=== PATIENT | male | born 1940 | race Caucasian/White ===

== ENCOUNTER 2024-02-15 18:02 | Emergency (ER) | payer OTHER, SELFPAY ==
--- NOTE | ~2024-02-15 | CT_ITS ---
EXAMINATION: CT CHEST WITHOUT CONTRAST CLINICAL INFORMATION: Altered mental status COMPARISON: None available. TECHNIQUE: Multidetector volumetric CT imaging of the chest was done. Axial MIP volume rendering provided. Sagittal and coronal reformatted images were obtained. This CT examination was performed using dose optimization techniques as appropriate, variously including the following: *Automated exposure control *Adjustment of mA and/or kV according to patient size (this includes techniques or standardized protocols for targeted exams where dose is matched to indication/reason for exam; i.e. extremities or head) *Use of iterative reconstruction technique DLP: 118 mGy-cm FINDINGS: LUNGS: The lungs are clear with no evidence of inflammation or nodules. MEDIASTINUM: The mediastinum is normal. CORONARY ARTERY CALCIFICATION: Moderate PLEURA: There is no pleural effusion. No pleural mass or thickening. AXILLA: No lymphadenopathy. UPPER ABDOMEN: Benign cysts are present in the liver. OSSEOUS STRUCTURES: There is a comminuted intra-articular fracture involving the humeral neck and portion of the humeral head on the left with marked displacement of the distal fracture fragments medially. There is a large surrounding hematoma and hemarthrosis. No scapular fracture is seen. No rib fractures are seen. Severe degenerative changes are present in the right glenohumeral joint. There is a compression fracture involving superior endplate of T12, age indeterminate. CT/CT chest wo IV con IMPRESSION: 1. Comminuted intra-articular fracture involving the left humeral neck and portion of the humeral head with marked displacement of the distal fracture fragments medially. 2. Age-indeterminate compression fracture superior endplate of T12. 3. No other significant abnormality is seen. Fleischner guidelines were followed.
--- NOTE | ~2024-02-15 | CT_ITS ---
EXAMINATION: CT HEAD WITHOUT CONTRAST CLINICAL INFORMATION: Fall. Mental status change. COMPARISON: None available. TECHNIQUE: Contiguous axial imaging was performed from the skull base to vertex without intravenous administration of contrast. This CT examination was performed using dose optimization techniques as appropriate, variously including the following: *Automated exposure control *Adjustment of mA and/or kV according to patient size (this includes techniques or standardized protocols for targeted exams where dose is matched to indication/reason for exam; i.e. extremities or head) *Use of iterative reconstruction technique DLP: 716 mGy-cm FINDINGS: There is no evidence of an extra-axial collection. There is no evidence of intra or extra-axial hemorrhage. The ventricles and extra-axial CSF spaces are prominent suggestive of mild generalized atrophy. There is nonspecific periventricular white matter disease. No mass, mass effect or infarct. No skull fracture. There is soft tissue swelling over the right frontal bone. There is soft tissue opacification of the right mastoid air cells. Left mastoid air cells, middle ears and visualized paranasal sinuses are clear. CT/CT head/brain wo IV con IMPRESSION: Generalized atrophy and nonspecific periventricular white matter disease. Soft tissue swelling over the right frontal bone. Right mastoid effusion.
--- NOTE | ~2024-02-15 | CT_ITS ---
EXAMINATION: CT CERVICAL SPINE WITHOUT CONTRAST CLINICAL INFORMATION: Fall COMPARISON: None available. TECHNIQUE: Axial images through the cervical spine without contrast. Sagittal and coronal reconstructions. This CT examination was performed using dose optimization techniques as appropriate, variously including the following: *Automated exposure control *Adjustment of mA and/or kV according to patient size (this includes techniques or standardized protocols for targeted exams where dose is matched to indication/reason for exam; i.e. extremities or head) *Use of iterative reconstruction technique DLP: 600 mGy-cm FINDINGS: Bone alignment is normal. No fracture or dislocation. Degenerative spondylosis and disc space narrowing at C5-C6 and C6-C7. Bilateral facet arthritis. Degenerative changes at the C1 dens articulation. Prevertebral soft tissues are normal. CT/CT cervical spine wo IV con IMPRESSION: Degenerative changes. No fracture or dislocation. Fleischner guidelines were followed.
--- NOTE | ~2024-02-15 | CT_ITS ---
EXAMINATION: Left humerus and forearm CT CLINICAL INFORMATION: Fall. Extensive swelling. Fracture. COMPARISON: None. TECHNIQUE: Axial images through the left humerus and left forearm without contrast. Sagittal and coronal reconstructions. This CT examination was performed using dose optimization techniques as appropriate, variously including the following: *Automated exposure control *Adjustment of mA and/or kV according to patient size (this includes techniques or standardized protocols for targeted exams where dose is matched to indication/reason for exam; i.e. extremities or head) *Use of iterative reconstruction technique DLP 2 9 6 mg/cm FINDINGS: There is a severely comminuted displaced fracture of the left humeral head and neck. The proximal humeral shaft is slightly impacted against the medial humeral head and displaced anteriorly and medially with respect to the humeral head. The humeral head is slightly low with respect to the glenoid probably secondary to joint effusion. There is extensive surrounding soft tissue swelling. No other fracture seen. The elbow is flexed. No forearm fracture is seen. Elbow and wrist joints are unremarkable. There is diffuse soft tissue swelling of the forearm. There is atherosclerotic disease. Visualized left lung is clear. CT/CT forearm LT wo IV con IMPRESSION: Severely comminuted displaced fracture of the left humeral head and neck. No other fracture seen. Diffuse soft tissue swelling of the left arm and forearm.
--- NOTE | ~2024-02-15 | CT_ITS ---
EXAMINATION: Left humerus and forearm CT CLINICAL INFORMATION: Fall. Extensive swelling. Fracture. COMPARISON: None. TECHNIQUE: Axial images through the left humerus and left forearm without contrast. Sagittal and coronal reconstructions. This CT examination was performed using dose optimization techniques as appropriate, variously including the following: *Automated exposure control *Adjustment of mA and/or kV according to patient size (this includes techniques or standardized protocols for targeted exams where dose is matched to indication/reason for exam; i.e. extremities or head) *Use of iterative reconstruction technique DLP 2 9 6 mg/cm FINDINGS: There is a severely comminuted displaced fracture of the left humeral head and neck. The proximal humeral shaft is slightly impacted against the medial humeral head and displaced anteriorly and medially with respect to the humeral head. The humeral head is slightly low with respect to the glenoid probably secondary to joint effusion. There is extensive surrounding soft tissue swelling. No other fracture seen. The elbow is flexed. No forearm fracture is seen. Elbow and wrist joints are unremarkable. There is diffuse soft tissue swelling of the forearm. There is atherosclerotic disease. Visualized left lung is clear. CT/CT humerus LT wo IV con IMPRESSION: Severely comminuted displaced fracture of the left humeral head and neck. No other fracture seen. Diffuse soft tissue swelling of the left arm and forearm.
[2024-02-15 18:18] VITALS: BP 140/78; BP 150/84; PULSE 69; PULSE 70; RESP 18; TEMP 36.5; O2SAT 16; O2SAT 99; BMI 21.9
--- NOTE | 2024-02-15 18:21 | ECG_ITS ---
Test Reason : FALL Blood Pressure : / mmHG Vent. Rate : 064 BPM Atrial Rate : 064 BPM P-R Int : 154 ms QRS Dur : 124 ms QT Int : 462 ms P-R-T Axes : 054 -23 032 degrees QTc Int : 476 ms Normal sinus rhythm Left ventricular hypertrophy with QRS widening ( R in aVL , Tony product ) Cannot rule out Septal infarct , age undetermined Abnormal ECG No previous ECGs available Referred By: Anca Spencer Electronically Signed By:ROZINA HANCOCK MD
--- NOTE | 2024-02-15 18:29 | ED_ITS ---
HPI - Fall General Chief Complaint: Fall Stated Complaint: UNWITNESSED FALL Time Seen by Provider: 02/15/24 18:14 Source: EMS Mode of arrival: EMS Limitations: altered mental status History of Present Illness HPI Narrative: Patient is an 83-year-old male who presents emergency department via EMS coming from [facility] [place], patient is a full code, reportedly he had an unwitnessed fall at the facility where he was found prone on the ground. Has history of humeral neck fracture, of unknown age. Arm was not found in a sling, noted to have extensive ecchymosis from the shoulder to the hand. EMS placed patient in a hard cervical spine collar. Patient is unable to answer questions, follows minimal commands. Related Data Allergies Allergy/AdvReac Type Severity Reaction Status Date / Time Iodinated Contrast Media Allergy Unknown Verified 02/15/24 18:25 [Contrast Dye] Review of Systems 2 Review of Systems: Yes Unobtainable due to mental status PMFSH Past Medical History Attestation statement: The following information was validated with the patient. (Validated with records from longterm facility) Source: old records reviewed Social History Social History Advance Directives: Yes Advance Directives Information Provided: No Advance Directives on File: No Physical Exam 2 Vital Signs: Vital Signs: Last Vital Signs Temp 98.7 F 02/15/24 23:29 Pulse 68 02/15/24 23:29 Resp 16 02/15/24 23:29 BP 121/74 02/15/24 23:29 Pulse Ox 97 02/15/24 23:29 O2 Del Method Room Air 02/15/24 23:29 BMI result Body Mass Index 21.9 Appearance: Lethargic. Not following commands Head: Right temporal scalp hematoma Neck: Normal inspection.? Neck supple.? Hard cervical spine collar in place. No palpable midline step-offs or deformities ? CVS: Heart sounds normal. Normal heart rate and rhythm.? Pulses normal.?? Respiratory: No respiratory distress.? Lung sounds clear to auscultation bilaterally?? Abdomen: Soft and non-tender. Normoactive bowel sounds. No pulsatile mass.?? Skin: Skin warm and dry.? Skin tears to the left upper extremity Extremities: Left upper extremity significant edema, ecchymosis and erythema from the shoulder to the distal tip of the digits. 1+ radial pulse on the left, 2+ radial pulse on the right Neuro: Difficult neurological examination, not noted to move either upper or lower extremity, noted to have spontaneous movement though minimal to bilateral lower extremities. Course Reevaluation(s) Reevaluation #1: After multiple attempts of trying to contact [facility], was finally able to make contact with nurse at the facility; Arti. She reports that the patient was transferred there from [facility] 02/10/2024 after mechanical fall at home with resultant left arm fracture, she reports plan of care was for patient to be in a sling at all times. She was not there when the fall occurred today, she states that she last saw the patient 2 days ago, he is confused at baseline [place] speaking, reports that he is functionally able to use his right arm, she is uncertain of his ambulatory status. Patient's son called and spoke with nursing staff, he reports that the patient is due to have an outpatient follow-up with [facility] 2 weeks after discharge from [facility], he states at baseline his father has a very unsteady gait is off balance due to his Parkinson's, he was previously using a walker or cane with supervision, due to his dementia is confused at baseline typically mumbling with minimal means of purposeful communication. he does affirm that the arm was to be in a sling at all times, no recommendation for splint or casting. . Time: 20:32 Reevaluation #2: On review of records from [facility], imaging of the left shoulder and humerus revealed a comminuted 2 part proximal humerus fracture with complete displacement humeral head still concentrically aligned with the glenoid fossa humeral shaft appears to be displaced anterior and medially with no recommendation for acute orthopedic surgical intervention at that time. This is consistent with findings on imaging today. The extremity is neurovascularly intact distally at this time. He was placed back in a sling accordingly. He is able to tolerate oral fluids with assistance. Spoke with patient's son who is agreeable for transfer back to longterm facility. Medical Decision Making Medical Decision Making MDM Narrative: Patient is an 83-year-old male with past medical history of Parkinson's disease, hypertension, urinary retention, proximal left humerus fracture of unknown age, glaucoma, hyperlipidemia, dementia, GERD, malignant neoplasm of the prostate presenting via EMS for evaluation after an unwitnessed fall where he was found lying prone on the ground. Patient is lethargic, not able to follow commands. Has extensive edema and erythema to the left upper extremity Differential Diagnosis Differential Diagnoses: The differential diagnosis associated with the presentation includes (ICH, SDH, fracture, subluxation, left humerus fracture, potential for additional fracture to the arm,) Admission/Observation Consideration of admission/observation: Escalation of care including admission/observation considered Lab Data MDM Lab Attestation statement: I reviewed the patient's lab results. CBC reveals leukocytosis, microcytic anemia does not meet transfusion criteria at this time, thrombocytosis. No electrolyte derangement. Elevated BUN 32, creatinine within normal range. Elevated alk-phos and T bili 1.9 otherwise unremarkable LFT. CK within normal range. High sensitive troponin within normal range. 02/15/24 18:53 02/15/24 18:53 Labs: Lab Results 02/15/24 02/15/24 Range/Units 18:53 21:07 WBC 11.2 H (4.8-10.8) X10*3/uL RBC 3.73 L (4.60-5.80) X10*6/uL Hgb 9.9 L (14.0-18.0) g/dl Hct 30.1 L (42.0-52.0) % MCV 80.7 (80.0-98.0) fL MCH 26.5 L (27.0-33.0) pg MCHC 32.9 (31.0-36.0) g/dl RDW 16.3 H (11.0-16.0) % Plt Count 455 H (160-400) X10*3/uL MPV 9.9 (9.4-12.4) fL Immature Gran % (Auto) 1.1 H (0.0-0.4) % Neut % (Auto) 74.7 H (45-73) % Lymph % (Auto) 12.1 L (20-40) % Moffat % (Auto) 10.5 (2-11) % Eos % (Auto) 1.2 (0-4) % Baso % (Auto) 0.4 (0-2) % Lymph # (Auto) 1.4 (1.2-4.9) X10*3/uL Moffat # (Auto) 1.2 (0.1-1.2) X10*3/uL Eos # (Auto) 0.1 (0.0-0.4) X10*3/uL Baso # (Auto) 0.0 (0.0-0.2) X10*3/uL Abs Immat Gran (auto) 0.12 H (0.00-0.03) X10*3/uL Absolute Neuts (auto) 8.4 H (2.0-8.3) x10*3/uL Absolute Nucleated RBC 0.000 (0.0-0.012) X10*3/uL Nucleated RBC % (auto) 0.0 (0.0-0.2) /100WBC PT 12.8 (11.1-13.3) SEC INR 1.1 (0.9-1.1) Sodium 140 (135-145) mmol/L Potassium 3.8 (3.3-5.1) mmol/L Chloride 107 (96-108) mmol/L Carbon Dioxide 25 (22-29) mmol/L Anion Gap 12 (12-20) BUN 32 H (9-16) mg/dL Creatinine 0.81 (0.5-1.4) mg/dL Estim Creat Clear Calc 65.9 Estimated GFR > 60 Random Glucose 110 (60-115) mg/dL Calcium 8.9 (8.4-10.2) mg/dL Magnesium 2.0 (1.6-2.6) mg/dL Total Bilirubin 1.9 H (0.0-1.0) mg/dL AST 22 (5-37) U/L ALT 5 (0-40) U/L Alkaline Phosphatase 159 H (39-117) U/L Ammonia 27 (13-55) umol/L Total Creatine Kinase 81 (38-174) U/L Troponin I High Sens 3.6 (<3.5-35.0) ng/L Total Protein 6.5 (6.5-8.0) g/dL Albumin 3.3 L (3.5-5.0) g/dL Radiology Impression Discussion of test interpretation with radiology: I have reviewed the radiologist's reading. Radiologist Impression: CT/CT forearm LT wo IV con IMPRESSION: Severely comminuted displaced fracture of the left humeral head and neck. No other fracture seen. Diffuse soft tissue swelling of the left arm and forearm. CT/CT head/brain wo IV con IMPRESSION: Generalized atrophy and nonspecific periventricular white matter disease. Soft tissue swelling over the right frontal bone. Right mastoid effusion. CT/CT cervical spine wo IV con IMPRESSION: Degenerative changes. No fracture or dislocation. CT/CT chest wo IV con IMPRESSION: 1. Comminuted intra-articular fracture involving the left humeral neck and portion of the humeral head with marked displacement of the distal fracture fragments medially. 2. Age-indeterminate compression fracture superior endplate of T12. 3. No other significant abnormality is seen. Discharge Plan Discharge Clinical Impression: Comminuted fracture of humerus, Fall Patient Disposition: Xfer LTC Transfer Details: [facility] Additional Instructions: Please maintain follow-up with orthopedics as scheduled. Left upper extremity must remain in a sling at all times Interventions: ED Discharge Assessment Last Done: 02/15/24 23:29 Discharge Date/Time: 02/15/24 23:43 Print Language: [place]
--- NOTE | 2024-02-15 18:42 | PC.NURSE ---
attempting to call [facility] in [place]. called 4 times without answer.
--- NOTE | 2024-02-15 18:42 | PC.NURSE ---
EMS applied temp sling to pt for stabilization as [facility] had no information regarding the pts fracture other than that the bruising to his arm and edema were present prior to his fall today. pt appears decerebrate upon initial inspection, skin tear to L arm weeping. informed providers of pts critical condition - Abdoul INTERNAL GRINDER SET UP OPERATOR at bedside to assess pt. pt immediately brought to CT
[2024-02-15 18:57] LABS: MANUAL DIFF FLAG NO
[2024-02-15 18:58] LABS: Basophils Percent Auto 0.4 % (0-2); Eosinophils Absolute Auto 0.1 X10*3/uL (0.0-0.4); Eosinophils Percent Auto 1.2 % (0-4); Hematocrit 30.1 % (42.0-52.0); Hemoglobin 9.9 g/dl (14.0-18.0); Imm Gran Abs Auto 0.12 X10*3/uL (0.00-0.03); Imm Gran Pct Auto 1.1 % (0.0-0.4); Lymphocytes Absolute Auto 1.4 X10*3/uL (1.2-4.9); Lymphocytes Percent Auto 12.1 % (20-40); Mean Corpuscular HGB Conc 32.9 g/dl (31.0-36.0); Mean Corpuscular Hemoglobin 26.5 pg (27.0-33.0); Mean Corpuscular Volume 80.7 fL (80.0-98.0); Mean Platelet Volume 9.9 fL (9.4-12.4); Monocytes Absolute Auto 1.2 X10*3/uL (0.1-1.2); Monocytes Percent Auto 10.5 % (2-11); Neutrophils Absolute Auto 8.4 x10*3/uL (2.0-8.3); Neutrophils Percent Auto 74.7 % (45-73); Platelet Count 455 X10*3/uL (160-400); Red Blood Count 3.73 X10*6/uL (4.60-5.80); Red Cell Distribution Width 16.3 % (11.0-16.0); White Blood Count 11.2 X10*3/uL (4.8-10.8)
[2024-02-15 19:02] VITALS: PULSE 64; RESP 14; TEMP 36.9; O2SAT 100
[2024-02-15 19:11] LABS: INTERNATIONAL NORM RATIO 1.1 (0.9-1.1); Prothrombin Time 12.8 SEC (11.1-13.3)
[2024-02-15 19:21] LABS: Troponin-I High Sensitivity 3.6 ng/L (<3.5-35.0)
[2024-02-15 19:28] LABS: Alanine Aminotransferase 5 U/L (0-40); Albumin Level 3.3 g/dL (3.5-5.0); Alkaline Phosphatase 159 U/L (39-117); Anion Gap 12 (12-20); Aspartate Amino Transferase 22 U/L (5-37); Bilirubin Total 1.9 mg/dL (0.0-1.0); Blood Urea Nitrogen 32 mg/dL (9-16); Calcium 8.9 mg/dL (8.4-10.2); Carbon Dioxide 25 mmol/L (22-29); Chloride 107 mmol/L (96-108); Creatinine Clr Calc Pharmacy 65.9; Estimated Glomerular Filt Rate > 60; Glucose Random 110 mg/dL (60-115); Potassium 3.8 mmol/L (3.3-5.1); Sodium 140 mmol/L (135-145); Total Protein 6.5 g/dL (6.5-8.0)
--- NOTE | 2024-02-15 19:57 | PC.NURSE ---
pt resting comfortably in bed, ready for CT
--- NOTE | 2024-02-15 20:31 | PC.NURSE ---
pt awake at this time. requested a blanket, denies pain, confused, unsure of events today. scientist propagator used
--- NOTE | 2024-02-15 21:15 | PC.NURSE ---
spoke with son, aware of plan to get records from [facility] for previous arm fracture
[2024-02-15 21:41] VITALS: BP 136/77; PULSE 67; RESP 15; O2SAT 98
[2024-02-15 23:02] LABS: Ammonia 27 umol/L (13-55)
[2024-02-15 23:06] VITALS: BP 121/74; PULSE 68; RESP 16; TEMP 37.1; O2SAT 97
--- NOTE | 2024-02-15 23:06 | MHC.EDTECH ---
PATIENT WAS INCONTINENT OF URINE ,CARE GIVEN AND VITALS TAKEN .
[2024-02-15 23:29] VITALS: BP 121/74; PULSE 68; RESP 16; TEMP 37.1; O2SAT 97
== END 2024-02-15 23:43 ==
PROVIDERS: Nurse Practitioner Family; Emergency Provider Internal Medicine; PCP Family Medicine
DX: S42.212A Unspecified displaced fracture of surgical neck of left humerus, initial encounter for closed fracture (principal); W19.XXXA Unspecified fall, initial encounter; Y93.9 Activity, unspecified; Y92.9 Unspecified place or not applicable; Y99.9 Unspecified external cause status; G20.A1 Parkinson's disease without dyskinesia, without mention of fluctuations; I10 Essential (primary) hypertension; R33.9 Retention of urine, unspecified; R41.82 Altered mental status, unspecified
CPT/HCPCS: 36415; 70450; 71250; 72125; 73200; 80053; 82140; 82550; 83735; 84484; 85025; 85610; 93005; 99284

== ENCOUNTER → 2024-02-15 18:21 | Outpatient (BNV) | payer OTHER, SELFPAY | PROVIDERS: Emergency Provider Internal Medicine; PCP Family Medicine; Visit Provider Internal Medicine Cardiovascular Disease | DX: I42.2 Other hypertrophic cardiomyopathy (principal); R94.31 Abnormal electrocardiogram [ECG] [EKG] | CPT/HCPCS: 93010 ==